=== PATIENT | female | born 1960 | race Caucasian/White ===

== ENCOUNTER 2018-04-10 21:29 | Emergency (ER) | payer OTHER ==
[~2018-04-10] VITALS: Ht 170.2 cm; Wt 90.7 kg
[2018-04-10] MEDS ORDERED: SYNTHROID88 MCG (21:36)
[2018-04-10] MEDS ORDERED: ATORVASTATIN CA40 MG (21:36)
[2018-04-10] MEDS ORDERED: EFFEXOR XR150 MG PO (21:37)
[2018-04-10] MEDS ORDERED: LISINOPRIL20 MG (21:37)
[2018-04-10] MEDS ORDERED: METFORMIN HCL500 MG PO (21:37)
[2018-04-10] MEDS ORDERED: TOBREX5 ML OPHTHALMIC (23:16)
[2018-04-10 23:34] VITALS: BP 142/76
== END 2018-04-10 23:35 | disposition home or self-care (01) ==
LOC: M.ERS 21:29
DX: S05.02XA Injury of conjunctiva and corneal abrasion without foreign body, left eye, initial encounter (principal); E03.9 Hypothyroidism, unspecified; F32.9 Major depressive disorder, single episode, unspecified; W54.8XXA Other contact with dog, initial encounter; Y93.89 Activity, other specified; Y92.89 Other specified places as the place of occurrence of the external cause; Y99.8 Other external cause status